=== PATIENT | male | born 1980 | race Caucasian/White ===

== ENCOUNTER 2017-05-21 18:36 | Emergency (ER) | payer BC ==
[~2017-05-21] VITALS: Ht 185.4 cm; Wt 100.0 kg
[~2017-05-21 18:36] MED LIST: CLON1TAB PO; IBUP800T23 PO; MEDR4PAK3 PO; METH750T2 PO; SUBO8MIS SL; ULTR50TA PO
[2017-05-21 18:37] VITALS: BP 163/98; PULSE 85; RESP 20; TEMP 97.8; O2SAT 97
--- NOTE | 2017-05-21 19:40 | PD ---
HPI Chief Complaint: Anxiety Time Seen by Provider: 19:30 Travel History International Travel<30 days: No Contact w/Intl Traveler<30days: No Traveled to known affect area: No History of Present Illness HPI 37-year-old male with history of bipolar disorder, presents emergency department for evaluation of worsening anxiety. 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 This has caused him to be significantly worried and more stressed. Patient states he has been off of his medications for about 3 months since getting insurance. He states he has not been able to find a new psychiatrist in [facility] will no longer prescribe his medication. He states he has become very jumpy and agitated. He feels increasingly anxious that he is unable to sleep. Denies suicidal homicidal ideations. Denies illicit drug use. States that he does try to avoid caffeine as this seems to worsen his anxiety. Denies any chest pain or tightness. No difficulty breathing. Patient has no other symptoms to report. PFSH Past Medical History Arthritis: Yes Blood Disorders: No Bipolar Disorder: Yes Anxiety: Yes (recent increase) Depression: Yes Cancer: No Cardiovascular Problems: No Chest Pain: No Congestive Heart Failure: No Cerebrovascular Accident: No Diabetes: No Diminished Hearing: No Endocrine: Yes (hypoglycemia) Gastrointestinal Disorders: Yes (HEP C) Genitourinary: No Headaches: No Hepatitis: Yes (HEP C) Hiatal Hernia: No Heparin Induced Thrombocytopen: No Hypertension: No Immune Disorder: No Implanted Vascular Access Dvce: Yes Neurologic: No Psychiatric: Yes (ANXIETY, DEPRESSION) Reproductive: No Immunizations Current: Yes Migraines: No Seizures: No Thyroid Disease: No Past Surgical History Abdominal Surgery: No AICD: No Appendectomy: No Body Medical Devices: screws in r shoulder Cardiac Surgery: No Cholecystectomy: No Ear Surgery: No Endocrine Surgery: No Genitourinary Surgery: No Joint Replacement: No Neurologic Surgery: No Oral Surgery: Yes (2006-"DENTAL SURGERY,IMPLANTS") Pacemaker: No Thoracic Surgery: No Other Surgery: Yes Social History Alcohol Use: Yes (special occu) Tobacco Use: Yes (less noemy 1/2 ppd) Substance Use: No (cocaine,pot,stopped 1 yr.ago.) Allergies-Medications (Allergen,Severity, Reaction): Coded Allergies: bee venom protein (honey bee) (Unverified Allergy, Intermediate, Swelling , 12/30/16) Reported Meds & Prescriptions Reported Meds & Active Scripts Active Ibuprofen 800 Mg Tab 800 Mg PO TID PRN Medrol Dosepak (Methylprednisolone) 4 Mg Lenin 4 Mg PO DIRECTED TAKE DIRECTED Robaxin (Methocarbamol) 750 Mg Tab 750 Mg PO QID PRN Ultram (Tramadol HCl) 50 Mg Tab 50 Mg PO Q4H PRN Reported Suboxone 8 mg/2 mg 8 mg/2 mg Subl 2 Strip SL DAILY SUBLINGUAL STRIP. Clonazepam 1 Mg Tab 0.5 Mg PO Q12 Review of Systems Except as stated in HPI: all other systems reviewed are Neg Physical Exam Narrative GENERAL: Well-nourished male patient, ambulatory and in no acute distress. SKIN: Focused skin assessment warm/dry. HEAD: Atraumatic. Normocephalic. EYES: Pupils equal and round. No scleral icterus. No injection or drainage. ENT: No nasal bleeding or discharge. Mucous membranes pink and moist. NECK: Trachea midline. No JVD. CARDIOVASCULAR: Regular rate and rhythm. No murmur appreciated. RESPIRATORY: No accessory muscle use. Clear to auscultation. Breath sounds equal bilaterally. GASTROINTESTINAL: Abdomen soft, non-tender, nondistended. Hepatic and splenic margins not palpable. MUSCULOSKELETAL: No obvious deformities. No clubbing. No cyanosis. No edema. NEUROLOGICAL: Awake and alert. No obvious cranial nerve deficits. Motor grossly within normal limits. Normal speech. PSYCHIATRIC: Appropriate mood and affect; insight and judgment normal. Data Data Last Documented VS Vital Signs Date Time Temp Pulse Resp B/P (MAP) Pulse Ox O2 Delivery O2 Flow Rate FiO2 05/21/17 19:09 (119) 05/21/17 18:37 97.8 85 20 97 Room Air Orders Orders Lorazepam (Ativan) (05/21/17 19:45) Ed Discharge Order (05/21/17 20:14) MDM Medical Decision Making Medical Screen Exam Complete: Yes Emergency Medical Condition: Yes Medical Record Reviewed: Yes Differential Diagnosis Anxiety versus mood disorder versus personality disorder versus adjustment reaction disorder Narrative Course 37-year-old male presents to emergency department for evaluation of worsening anxiety. Patient appears without distress. He does voice concern about his worsening anxiety and feeling more jumpy to where he feels he is unable to function to his fullest potential. Patient is accompanied by his girlfriend. He does appear legitimately concerned. I discussed with [facility] who advises one month of Vistaril and we will provide him a packet of psychiatrists that he could try to contact. This plan is discussed with the patient. He is in agreement with this clinic care and will return immediately with any acute worsening symptoms. Diagnosis Primary Impression: Anxiety Referrals: Primary Care Physician Psychiatrist Patient Instructions: Anxiety (ED), General Instructions Additional Instructions: Take medication as prescribed Please refer to your resource list for potential psychiatrist to establish care with Follow-up with a primary care provider Return immediately with any acute worsening symptoms Med/Other Pt SpecificInfo: Prescription(s) given Scripts Hydroxyzine Pamoate (Vistaril) 25 Mg Cap 1-2 CAP PO Q6H Y for ANXIETY AND/OR INSOMNIA, #60 CAP 0 Refills Prov: Lynne Quintero 05/21/17 Disposition: 01 DISCHARGE HOME Condition: Stable Lynne Quintero May 21, 2017 19:40
[2017-05-21] MEDS ORDERED: LORazepam 1 MG TAB PO ONE (19:45)
[2017-05-21] MEDS ORDERED: VIST25CA PO (20:20)
[2017-05-21 20:24] VITALS: BP 126/86
== END 2017-05-21 20:31 | disposition home or self-care (01) ==
LOC: NEPD 18:36
DX: F41.9 Anxiety disorder, unspecified (principal); F31.9 Bipolar disorder, unspecified; B19.20 Unspecified viral hepatitis C without hepatic coma; F17.210 Nicotine dependence, cigarettes, uncomplicated; Z79.1 Long term (current) use of non-steroidal anti-inflammatories (NSAID); Z79.899 Other long term (current) drug therapy; Z91.030 Bee allergy status
CPT/HCPCS: 99283